=== PATIENT | female | born 1980 | race Two or more races ===

== ENCOUNTER 2022-04-27 13:43 | Outpatient (CLI) | payer OTHER ==
--- NOTE | 2022-04-27 16:09 | XRAY Report ---
PROCEDURE: Lumbar Spine Complete INDICATIONS: NECK AND LOW BACK PAIN TECHNIQUE: 5 views of the lumbar spine were acquired. COMPARISON: None. FINDINGS: Bones: 5 [id number]-[id number] vertebrae are present. There is normal bony alignment. Degenerative endpl ate changes and loss of disc height at L4-5 and L5-S1 levels are seen. No vertebral body compression fractures. No suspicious bony lesions. Oblique views shows no gross pars defects. Bilateral bony fo raminal stenosis at L4-5 and L5-S1 levels are seen. Soft tissues: Overlying bowel gas pattern is normal. No suspicious soft tissue calcifications. IMPRESSION: Mild degenerative disc disease in lower lumbar spine. Suggestion of mild bilateral bony foraminal stenosis at L4-5 and L5-S1 levels. No gross pars defects. No acute compression fracture or spondylolisthesis. Reviewed by: Francisco Arzola MD on 04/27/2022 4:07 PM PST Approved by: Francisco Arzola MD on 04/27/2022 4:07 PM PST Station ID: [id number]
--- NOTE | 2022-04-27 16:09 | XRAY Report ---
PROCEDURE: Cervical Spine Complete INDICATIONS: NECK AND LOW BACK PAIN TECHNIQUE: 6 views of the cervical spine acquired. COMPARISON: None. FINDINGS: Bones: No fractures or dislocations to the T1 level. Mild degenerative endplate changes are noted at C3-4 through C6-7 levels Oblique images demonstrate bilateral bony foraminal stenosis at C5-6 level. Soft tissues: No prevertebral soft tissue swelling. IMPRESSION: Mild degenerative disc disease throughout cervical spine. No acute fracture or dislocatio n. Bilateral bony foraminal stenosis at C5-6 level. Reviewed by: Francisco Arzola MD on 04/27/2022 4:08 PM PST Approved by: Francisco Arzola MD on 04/27/2022 4:08 PM PST Station ID: [id number]
== END 2022-04-27 13:44 | disposition home or self-care (01) ==
LOC: DI 13:43
PROVIDERS: ATTEND Family Medicine
DX: M50.31 Other cervical disc degeneration, high cervical region (principal); M48.02 Spinal stenosis, cervical region; M51.36 Other intervertebral disc degeneration, lumbar region

== ENCOUNTER 2022-11-20 21:52 | Emergency (ER) | payer OTHER ==
[2022-11-20] MEDS ORDERED: SUMAtriptan 6 MG/0.5 ML VIAL SUBQ STA (22:14)
[2022-11-20] MEDS ORDERED: HYDROmorphone 1 MG/ML CARPUJECT IVP STA (22:14)
--- NOTE | 2022-11-20 22:16 | ED Physician Documentation ---
PD HPI FOCAL NEURO - Stated complaint Stated Complaint: MIGRAINE - Chief complaint Chief Complaint: Neuro - History obtained from History obtained from: Patient - Additional information Additional information: 42-year-old woman with history of hypertension presents with her for evaluation for facial and jaw pain. She also has a history of myocardial bridging syndrome. The last 2 weeks she has had intermittent severe pain of the posterior jaw which is much worse if she chews. She is not short of breath with it. She has has neck pain and a headache that is dissimilar to prior migraines. Pain is intermittent and somewhat brought on by chewing. Not associate with fevers. She gets transient relief from rizatriptan. PD PAST MEDICAL HISTORY - Allergies Allergies/Adverse Reactions: Allergies Allergy/AdvReac Type Severity Reaction Status Date / Time No Known Drug Allergies Allergy Verified 11/20/22 21:55 PD ED PE NORMAL - Vitals Vital signs reviewed: Yes - General General: Alert and oriented X 3, No acute distress - HEENT HEENT: PERRL, EOMI, Other (Tender over the right greater than left jaw. TMs normal. 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 Eye Opening: Spontaneous Motor: Obeys Commands Verbal: Oriented GCS Score: 15 Results - Vitals Vitals: Vital Signs - 24 hr 11/20/22 21:56 Temperature 36.5 C Heart Rate 70 Respiratory 16 Rate Blood Pressure 100/60 O2 Saturation 98 Oxygen O2 Source Room air - Labs Labs: Laboratory Tests 11/20/22 11/20/22 22:23 22:23 WBC 8.1 RBC 4.20 Hgb 9.9 L Hct 32.6 L MCV 77.6 L MCH 23.6 L MCHC 30.4 L RDW 17.6 H Plt Count 272 MPV 10.5 Neut # (Auto) 5.5 Lymph # (Auto) 1.9 [place] # (Auto) 0.5 Eos # (Auto) 0.1 Baso # (Auto) 0.0 Absolute Nucleated RBC 0.00 Nucleated RBC % 0.0 Sodium 136 Potassium 4.4 Chloride 101 Carbon Dioxide 26 Anion Gap 9.0 BUN 33 H Creatinine 1.5 H Estimated GFR (MDRD) 38 L Glucose 122 H Calcium 8.9 PD Medical Decision Making - ED course ED course: 42-year-old woman with intermittent facial and jaw pain. Could be a neuralgia of one of the cranial nerves such as trigeminal neuralgia. Differential would include his other causes of headaches and also atypical ACS. Will obtain EKG and CT scanning of the head and face. CBC reviewed for microcytic anemia of unclear chronicity and BMP reviewed showing modest decreased renal function also of unclear chronicity. She was administered IV Dilaudid, carbamazepine orally here and looking much more comfortable on the way to CT. Care to overnight emergency physician at 11 PM shift change pending results and reevaluation. Departure - Departure Clinical Impression: Facial pain, Neck pain Headache Qualifiers: Headache type: unspecified Headache chronicity pattern: episodic headache Intractability: not intractable Qualified Code(s): R51.9 - Headache, unspecified Condition: Good Record reviewed to determine appropriate education?: Yes Instructions: ED Cephalgia Unspecified Comments: You were seen today for headache and facial pain and neck pain. Certainly could be a cranial neuralgia such as trigeminal. Follow-up with your primary care physician, consideration for referral to neurology. Lab work showed that you were anemic, hemoglobin 9.9 and hematocrit 32.6. You also have decreased renal function with BUN of 33 and creatinine of 1.5 with GFR 38. All of these need to be followed and managed by your primary as well. Forms: PCP List
[2022-11-20 22:30] LABS: BASOPHILS % (AUTO) 0.4 %; EOSINOPHILS # (AUTO) 0.1 10^3/uL (0.0-0.7); EOSINOPHILS % (AUTO) 0.9 %; HCT - HEMATOCRIT 32.6 % (37.0-47.0); HGB - HEMOGLOBIN 9.9 g/dL (12.0-16.0); LYMPHOCYTES # (AUTO) 1.9 10^3/uL (1.5-3.5); LYMPHOCYTES % (AUTO) 23.6 %; MEAN CORPUSCULAR HEMOGLOBIN 23.6 pg (27.0-31.0); MEAN CORPUSCULAR HGB CONC 30.4 g/dL (32.0-36.0); MEAN CORPUSCULAR VOLUME 77.6 fL (81.0-99.0); MEAN PLATELET VOLUME 10.5 fL (7.9-10.8); MONOCYTES # (AUTO) 0.5 10^3/uL (0.0-1.0); MONOCYTES % (AUTO) 6.4 %; NEUTROPHILS # (AUTO) 5.5 10^3/uL (1.5-6.6); NEUTROPHILS % (AUTO) 68.2 %; PLT - PLATELET COUNT 272 10^3/uL (130-450); RED CELL DISTRIBUTION WIDTH 17.6 % (12.0-15.0); WHITE BLOOD COUNT 8.1 x10^3/uL (4.8-10.8)
[2022-11-20 22:41] LABS: CALCIUM 8.9 mg/dL (8.5-10.3); CREATININE 1.5 mg/dL (0.4-1.0); POTASSIUM 4.4 mmol/L (3.5-5.0)
[2022-11-20] MEDS ORDERED: carBAMazepine 200 MG TABLET PO SCH (23:00)
[2022-11-20] MEDS ORDERED: SODIUM CHLORIDE 0.9% 1,000 ML IV STA (23:13)
--- NOTE | 2022-11-20 23:26 | ED Physician Documentation ---
ED Addendum - Addendum Addendum: 11/20/22 23:23 Patient endorsed to me by Dr. Pink at 11 PM shift change. 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 Labs otherwise normal on CBC, abdominal panel. EKG performed at 23: 18 showed rate of 63 with normal sinus rhythm, normal intervals and no ST or T wave abnormalities. Patient is well-appearing with improvement in pain status post Dilaudid, Imitrex, carbemazapine IV in the ED. CT head, face, neck was performed and wet read is unremarkable. Radiology interpretation concurred. Plan is to discharge home with neuro follow-up for evaluation for possible trigeminal neuralgia versus TMJ vs acute on chronic neck pain vs other etiology. Prescription for carbamazepine will be sent to pharmacy. Return precautions given. Disposition Home Condition stable Impression 1 headache 2 neck pain 3. jaw pain 11/20/22 23:49 11/21/22 00:38
[2022-11-20] MEDS ORDERED: ONDANSETRON 4 MG/2 ML VIAL IVP STA (23:33)
[2022-11-20] MEDS ORDERED: ACETAMINOPHEN 325 MG TABLET PO STA (23:33)
[2022-11-20] MEDS ORDERED: KETOROLAC 15 MG/ML VIAL IVP STA (23:33)
[2022-11-20] MEDS ORDERED: diphenhydrAMINE INJ 50 MG/ML VIAL IVP STA (23:34)
[2022-11-20] MEDS ORDERED: METOCLOPRAMIDE 10 MG/2 ML VIAL IVP STA (23:34)
--- NOTE | 2022-11-20 23:35 | CT Report ---
PROCEDURE: HEAD WO INDICATIONS: Head face and neck pain TECHNIQUE: Noncontrast 4.5 mm thick angled axial sections acquired from the foramen magnum to the vertex. For r adiation dose reduction, the following was used: automated exposure control, adjustment of mA and/or kV according to patient size. COMPARISON: None. FINDINGS: Image quality: Excellent. CSF spaces: Basal cisterns are patent. No extra-axial fluid collections. Ventricles are normal in size and shape. Brain: No intracranial hemorrhage, mass, or mass effect. [place]-white matter interface appears preser cheryl. Skull and face: Calvarium and visualized facial bones are intact, without suspicious lesions. Sinuses: Visualized sinuses and mastoids are clear. IMPRESSION: 1. No acute intracranial abnormality. Reviewed by: Rhett Malagon MD on 11/20/2022 11:34 PM PDT Approved by: Rhett Malagon MD on 11/20/2022 11:34 PM PDT Station ID: [id number]
--- NOTE | 2022-11-20 23:52 | CT Report ---
PROCEDURE: CERVICAL SPINE WO INDICATIONS: Head face and neck pain TECHNIQUE: Noncontrast 3 mm thick sections acquired from the skull base to the T4 level. Sagittal and coronal r eformats were then constructed. For radiation dose reduction, the following was used: automated exp osure control, adjustment of mA and/or kV according to patient size. COMPARISON: None. FINDINGS: Image quality: Excellent. Bones: No fractures or subluxation. Visualized superior ribs are intact. Soft tissues: Prevertebral soft tissues are normal in thickness. No paravertebral hematomas. No ap ical pneumothoraces. IMPRESSION: 1. No fracture or subluxation. Reviewed by: Rhett Malagon MD on 11/20/2022 11:51 PM PDT Approved by: Rhett Malagon MD on 11/20/2022 11:51 PM PDT Station ID: [id number]
--- NOTE | 2022-11-20 23:53 | CT Report ---
PROCEDURE: MAXILLOFACIAL WO INDICATIONS: Head face and neck pain TECHNIQUE: Noncontrast 1.5 mm thick axial images acquired from the mandible through the frontal sinuses, with co taran and sagittal reformatting. For radiation dose reduction, the following was used: automated ex posure control, adjustment of mA and/or kV according to patient size. COMPARISON: Concurrent head CT. FINDINGS: Image quality: Excellent. Bones and teeth: Orbital fernandez are intact. Sinus fernandez show no fracture or deformity. Nasal bones and septum are intact. Visualized portions of the mandible demonstrate no fractures or subluxation. Zygomatic arches are intact. Pterygoid plates are intact. Visualized portions of the skull base an d auditory canals are intact. Sinuses: Paranasal sinuses are aerated, without fluid levels, mucosal thickening, or mucoceles. Mas toid air cells are aerated. Soft tissues: No edema, masses, or fluid collections. The globes are intact. No enlarged lymph nodes . No soft tissue lacerations or debris. Vascular: Visualized vascular structures appear normal in the absence of contrast. Bony vascular fo ramina and canals are intact. IMPRESSION: 1. No facial bone fractures identified. Reviewed by: Rhett Malagon MD on 11/20/2022 11:52 PM PDT Approved by: Rhett Malagon MD on 11/20/2022 11:52 PM PDT Station ID: [id number]
[2022-11-21 00:15] VITALS: O2SAT 100
[2022-11-21 01:33] VITALS: BP 98/67
== END 2022-11-21 01:15 | disposition home or self-care (01) ==
LOC: ED 21:52
DX: R51.9 Headache, unspecified (principal); M54.2 Cervicalgia
CPT/HCPCS: 36415; 70450; 70486; 72125; 80048; 85025; 93005; 96372; 96374; 96375; 99284; 99285; A9270; J1170; J1200; J2765